=== PATIENT | female | born 1995 | race American Indian/Alaskan Native ===

== ENCOUNTER 2018-10-23 07:16 | Emergency (ER) | payer OTHER ==
[2018-10-23 07:21] VITALS: BP 122/76
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
== END 2018-10-23 09:30 | disposition home or self-care (01) ==
LOC: ED 07:16
DX: S39.012A Strain of muscle, fascia and tendon of lower back, initial encounter (principal); M62.838 Other muscle spasm; I10 Essential (primary) hypertension; F17.200 Nicotine dependence, unspecified, uncomplicated; Z79.899 Other long term (current) drug therapy; V49.9XXA Car occupant (driver) (passenger) injured in unspecified traffic accident, initial encounter; Y93.89 Activity, other specified; Y92.488 Other paved roadways as the place of occurrence of the external cause; Y99.8 Other external cause status
CPT/HCPCS: 72040; 72100; 99283

== ENCOUNTER 2019-04-01 19:32 | Emergency (ER) | payer SELFPAY ==
[2019-04-01 19:51] VITALS: BP 124/63
[2019-04-01 20:39] LABS: HCG Qualitative,Urine Positive (Negative)
[2019-04-01 20:48] LABS: Bacteria,Urine 1+ /HPF (Negative); Bilirubin,Urine NEG (Negative); Blood,Urine NEG (Negative); Color,Urine Yellow (Yellow); Mucus,Urine 2+ /HPF; Urobilinogen,Urine < 2.0 mg/dL (<2.0)
[2019-04-01] MEDS ORDERED: ACETAMINOPHEN 500 MG TAB PO ONE (21:01)
[2019-04-01] MEDS ORDERED: cephALEXin 500 MG CAP PO ONE (21:02)
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
== END 2019-04-01 22:54 | disposition left against medical advice (07) ==
LOC: ED 19:32
DX: O23.41 Unspecified infection of urinary tract in pregnancy, first trimester (principal); O98.911 Unspecified maternal infectious and parasitic disease complicating pregnancy, first trimester; O10.911 Unspecified pre-existing hypertension complicating pregnancy, first trimester; O99.331 Smoking (tobacco) complicating pregnancy, first trimester; O99.321 Drug use complicating pregnancy, first trimester; Z3A.01 Less than 8 weeks gestation of pregnancy
CPT/HCPCS: 36415; 81001; 81025; 84702; 87086